=== PATIENT | female | born 1950 ===

== ENCOUNTER 2016-03-31 11:06 | Emergency (ER) | payer OTHER ==
[~2016-03-31] VITALS: Ht 167.6 cm; Wt 61.2 kg
[2016-03-31 11:56] VITALS: BP 169/89
== END 2016-03-31 12:14 | disposition home or self-care (01) ==
LOC: EDBD 11:06 → ER 11:12
DX: S70.01XA Contusion of right hip, initial encounter (principal); M19.90 Unspecified osteoarthritis, unspecified site; I10 Essential (primary) hypertension; V49.9XXA Car occupant (driver) (passenger) injured in unspecified traffic accident, initial encounter; Y93.89 Activity, other specified; Y99.8 Other external cause status; Y92.89 Other specified places as the place of occurrence of the external cause